=== PATIENT | male | born 1980 | race African-American/Black ===

== ENCOUNTER 2016-05-25 12:46 | Emergency (ER) | payer MEDICARE, MEDICAID ==
[2016-05-25] MEDS ORDERED: NORMAL SALINE 1,000 ML IV ONE ×2 (13:19→14:52)
[2016-05-25] MEDS ORDERED: HYDROmorphone HCL 1 MG/ML DISP.SYRIN IV ONE ×4 (13:19→18:26)
[2016-05-25] MEDS ORDERED: ONDANSETRON HCL/PF 2 MG/ML VIAL IV ONE (13:19)
--- NOTE | 2016-05-25 13:27 | ERNOTE ---
Chest Pain/Cardiac HPI Date of Service: 05/25/16 Chief Complaint: Chest Pain Time Seen by Provider: 05/25/16 13:12 Source: patient, family, RN notes reviewed Exam Limitations: no limitations Immunizations: IMMUNIZATION HX Immunizations Up to Date Yes History of Influenza Vaccine Yes Hx Pneumococcal Vaccination No Allergies/Adverse Reactions: Allergies morphine Allergy (Verified 05/25/16 13:07) nalbuphine HCl [From Nubain] Allergy (Verified 05/25/16 13:07) Home Medications: HOME MEDICATIONS Folic Acid 2 mg PO DAILY 04/23/16 [Last Taken Unknown] Hydroxyurea [Hydrea] 2,500 mg PO DAILY 04/23/16 [Last Taken Unknown] Multivitamin [One Daily Essential] 1 each PO DAILY 04/23/16 [Last Taken Unknown] Oxycodone HCl [Oxycodone HCl ER] 20 mg PO DAILY #4 [id number] 04/23/16 [Last Taken Unknown] Oxycodone HCl [Oxycontin] 60 mg PO BID 04/23/16 [Last Taken Unknown] Narrative: Feliberto is a 35 year old male who presents to the ED for chest pain that began at about 0200. He was able to go to sleep, but continued to have pain once he woke up this morning. He then had a syncopal episode in the shower sometime during the morning. He reports having cold symptoms for the past few days and taking Tatyana Hamburg cold last evening. He reports being off of his routine medications for over a week. Date (Duration): 05/25/16 Time (Timing): 02:00 Timing: getting worse Severity/Quality: severe, aching Location: substernal Chest Pain Radiation: back Activities at Onset: none Nitro Today/Relief: no nitro taken today Aspirin Treatment Today: no aspirin today Associated Symptoms: Present: dizziness, syncope, cough, shortness of breath, back pain. Absent: headache, diaphoresis, fever/chills, palpitations, nausea, vomiting, abdominal pain Prior Chest Pain/Cardiac Workup: Reports: prior chest pain Prior Treatment: Reports: recently seen Review of Systems - Review of Systems Constitutional: Present: recent illness, fatigue, malaise. Absent: fever, chills EYE: Present: no symptoms reported ENT: Present: nose congestion, nasal drainage. Absent: sore throat Respiratory: Present: shortness of breath, cough. Absent: orthopnea, wheezing Cardiology: Present: chest pain, syncope. Absent: palpitations, edema Gastrointestinal/Abdominal: Absent: nausea, vomiting, diarrhea, abdominal pain Genitourinary: Present: no symptoms reported Musculoskeletal: Present: back pain, muscle pain Skin: Absent: rash, lesions, lumps Neurological: Present: dizziness/light-headedness. Absent: headache Endocrine: Present: no symptoms reported Hematologic/Lymphatic: Present: no symptoms reported Psych: Present: no symptoms reported - Patient's Past Medical History Patient History - Medical: Chronic Pain, Other Patient History - Cardiac/Respiratory: Other - Sickle cell Patient History - Cancer: No Hx of Cancer Patient History - Surgical Procedures: Cholecystectomy, Other - infusion port - Family History Father Family History - Medical: Other - Social History Living Situations: home Alcohol Use: rarely Drug Use: none Physical Exam - Physical Exam General Appearance: Present: alert, moderate distress, thin Neck: Present: normal inspection, nontender, supple Respiratory: Present: normal breath sounds, chest nontender, lungs clear, respiratory distress - mild, accessory muscle use - mild Cardiovascular/Chest: Present: regular rate, rhythm, no murmur, normal peripheral pulses Gastrointestinal/Abdominal: Present: nontender, nondistended, soft Neurological Exam: Present: alert, oriented, normal mood/affect Skin Exam: Present: normal color, warm/dry ED Progress - Results and Orders Patient's Lab Results:: I have reviewed the patient's lab results. - Vital Signs Patient's Vital Signs:: I have reviewed the patient's vital signs. Vital Signs: Vital Signs 05/25/16 13:02 Temperature 37.1 C Pulse Rate 82 Respiratory 16 Rate Blood Pressure 111/60 O2 Sat by Pulse 100 Oximetry - EKG EKG: NSR, nonspecific ST T wave changes, changed from - 04/23/16 EKG read: Reviewed by me EKG Comments: Repeat EKG at 181 shows a sinus michelle at 54 with improvement in T-wave abnormality - Progress/Reassessment Chief Complaint: Chest Pain Progress:: Improved Progress Note-Subjective: 05/25/16 17:11 Anesthesia here for IV start for PE study after several failed attempts. Patient has implanted port but is not a power port. Continues to rate pain at 7/ 10 but dozes when not disturbed. Has had 3 mg of Dilaudid total since arrival. 05/25/16 17:47 Repeat EKG improved, IV access obtained by anesthesia (#18 right EJ), no change in pain, Toradol ordered, xray here to take patient for CT 05/25/16 19:17 Dilaudid 1 mg IVP repeated after no change with Toradol. Now rates pain at 6/10 which he reports is his "tolerable" level. Discussed CT results - negative for PE or other acute findings, but discussed staying overnight for observation d/t ongoing pain and elevated WBC. Patient reports that he cannot stay because of lack of childcare. On review of his previous visits, this is also what happened the last time he was to be admitted. Informed patient that I do not feel that he is stable enough to go home tonight and that he will have to sign AMA. I was going to give him enough pain meds to get him by until he is seen at [facility] on 05/08 - but on review of his [employer] record he filled a month supply of oxycontin on 05/05/16. He claims this was stolen. Instructed to discuss this with the original prescriber. Vitals stable at discharge. Repeat troponin was negative and EKG had improved. Departure - Departure Clinical Impression: Sickle cell anemia with pain Disposition: Against medical advice Condition: Fair Instructions: Sickle Cell Anemia, Adult, [id number]
[2016-05-25 13:38] LABS: Hematocrit 26.7 % (42.0-52.0); Hemoglobin 9.4 gm/dL (13.5-18.0); Mean Cell Volume 79.5 fl (78-100); Mean Corpuscular Hgb Conc 35.2 g/dl (32-36); Platelet Count 403 K/mm3 (150-450); Red Blood Count 3.36 M/mm3 (4.7-6.0); Red Cell Distribution Width 14.9 % (11.5-14.0); White Blood Count 13.5 K/mm3 (4.0-10.5)
[2016-05-25 13:40] LABS: Total Cells Counted 100
[2016-05-25] MEDS ORDERED: HYDROmorphone HCL 1 MG/ML DISP.SYRIN ONE ×4 (13:40→18:27)
[2016-05-25] MEDS ORDERED: ONDANSETRON HCL/PF 2 MG/ML VIAL ONE (13:40)
[2016-05-25] MEDS ORDERED: diphenhydrAMINE HCL 50 MG/ML VIAL IV ONE ×2 (13:42→14:42)
[2016-05-25] MEDS ORDERED: diphenhydrAMINE HCL 50 MG/ML VIAL ONE ×2 (13:43→14:43)
[2016-05-25 13:56] LABS: ALT 32 U/L (19-67); AST 25 U/L (0-48); Alkaline Phosphatase * 88 U/L (50-170); Anion Gap 12.2 mmol/L (6.8-13.8); BUN/Creatinine Ratio 8.5 (9.0-21.6); Bilirubin, Total 0.6 mg/dL (0.0-1.1); Blood Urea Nitrogen 5 mg/dL (6-23); Ca. Corrected For Albumin 9.1 mg/dL (8.4-10.2); Calcium * 9.4 mg/dL (7.9-10.9); Carbon Dioxide 26.5 mmol/L (24-32.6); Chloride 107 mmol/L (97-106); Glucose * 88 mg/dL (70-110); Potassium 3.7 mmol/L (3.4-4.6); Sodium 142 mmol/L (132-142); Total Protein 7.2 gm/dL (6.2-8.2); Troponin I Less than 0.017 ng/ml (0.00-0.10)
[2016-05-25 14:20] LABS: Atypical (Reactive) Lymph 2 % (0-2); Eosinophil 2 % (0-3); Lymphocyte 15 % (20-51); Monocyte 5 % (0-9); Neutrophil 76 % (42-75); Neutrophil # 10.3 K/mm3 (1.3-6.0)
[2016-05-25 14:21] LABS: Hypersegmented Polys 1+
[2016-05-25 14:22] LABS: Target Cells 3+
[2016-05-25 14:23] LABS: Hypochromia 1+
[2016-05-25 14:24] LABS: Schistocytes 1+
[2016-05-25 14:25] LABS: Howell-Jolly Bodies 1+; Platelet Estimate Normal (NORMAL)
[2016-05-25] MEDS ORDERED: KETOROLAC TROMETHAMINE 30 MG/ML VIAL IV ONE (17:38)
[2016-05-25] MEDS ORDERED: KETOROLAC TROMETHAMINE 30 MG/ML VIAL ONE (17:43)
--- NOTE | 2016-05-25 17:49 | OR ---
Anesthesia Procedure Note - Anesthesia Procedure Note Narrative: Vital Signs - Last Taken Temp 37.1 C 05/25/16 13:02 Pulse 66 05/25/16 16:51 Resp 16 05/25/16 16:51 BP 104/65 05/25/16 16:51 Pulse Ox 98 05/25/16 16:51 O2 Oxygen Delivery Method Nasal Cannula 05/25/16 17:47 ANESTHESIA PROCEDURE NOTE Date of procedure: 05/25/2016. Time of procedure: 1720. Performed by: Marcus West CRNA Nurseryperson: None . Preprocedure diagnosis: Chest pain. CT to rule out PE. Post procedure diagnosis: Same. Procedure: IV start Indications: Large bore IV for CT. Findings: 18-gauge IV started and right external jugular after attempted right antecubital. EBL: Minimal. Fluids: N/A. Specimen: N/A. Post procedure condition: The patient tolerated the procedure well. No complications were noted. Thank you for this consultation Marcus West CRNA
[2016-05-25 19:23] VITALS: BP 102/58
== END 2016-05-25 19:22 | disposition left against medical advice (07) ==
LOC: ER 12:46
DX: D57.00 Hb-SS disease with crisis, unspecified (principal); Z90.49 Acquired absence of other specified parts of digestive tract